=== PATIENT | female | born 1970 | race Caucasian/White ===

== ENCOUNTER 2018-04-04 13:25 | Emergency (ER) | payer SELFPAY ==
[~2018-04-04] VITALS: Ht 134.6 cm; Wt 67.3 kg
[2018-04-04] MEDS ORDERED: PARO20TA24 PO (13:54)
[2018-04-04] MEDS ORDERED: TRAZ-219 PO (13:54)
[2018-04-04] MEDS ORDERED: ALPR-340 PO (13:54)
[2018-04-04] MEDS ORDERED: ALBUTEROL SULFATE 5 MG/ML 20 ML NEB SOLN [BULK] NEB ONE (14:15)
[2018-04-04] MEDS ORDERED: IPRATROPIUM BROMIDE 0.5 MG/2.5 ML NEB SOLUTION NEB ONE (14:15)
[2018-04-04] MEDS ORDERED: 0.9% SODIUM CHLORIDE 5 ML NEB SOLUTION NEB ONE (14:30)
[2018-04-04 14:38] LABS: ABG A-A DIFF O2 419.5 mmHg (10-20.0); ABG BASE EXCESS 5.5 mmol/L (-2.0-3.0); ABG CARBOXYHEMOGLOBIN 0.9 % (0.0-1.5); ABG METHEMOGLOBIN 0.3 % (0.0-1.5); ABG OXYGEN CONTENT 14.3 mL/dL (15.0-23.0); ABG OXYGEN SATURATION 99.1 % (95.0-98.0); ABG OXYHEMOGLOBIN 97.9 % (94.0-100.0); ABG PCO2 44 mmHg (35-45); ABG PH 7.448 (7.35-7.450); ABG TOTAL HEMOGLOBIN 9.9 G/dL (12.0-18.0); PO2, ARTERIAL BG 249.9 mmHg (88.0-96.0); SOURCE, BLOOD GAS ARTERIAL; TEMPERATURE, FAHRENHEIT, BG 98.6 FAHREN (96.0-98.6)
[2018-04-04 14:39] LABS: O2 DEVICE,BLOOD GAS NON REBREATHER (ROOM AIR); SITE, BLOOD GAS LFT RADIAL
[2018-04-04 15:09] LABS: HEMATOCRIT 28.8 % (36-46); HEMOGLOBIN 9.6 g/dL (12.0-16.0); MEAN CORPUSCULAR HEMOGLOBIN 36.8 pg (26.0-34.0); MEAN CORPUSCULAR HGB CONC 33.4 G/dL (31.0-37.0); MEAN CORPUSCULAR VOLUME 110 fL (80-100); PLATELET COUNT (AUTO) 187 K/uL (150-450); RED BLOOD CELL COUNT(AUTO) 2.62 MIL/uL (4.00-5.20); RED CELL DISTRIBUTION WIDTH 14.7 % (11.5-14.5)
[2018-04-04 15:23] LABS: CALCIUM, TOTAL 8.9 mg/dL (8.8-10.5); CREATININE 1.59 mg/dL (0.60-1.30); POTASSIUM 4.1 mmol/L (3.5-5.1)
[2018-04-04] MEDS ORDERED: AZITHROMYCIN 500 MG/NS 250 ML IV ONE (15:30)
[2018-04-04] MEDS ORDERED: CefTRIAXone 1 GM/DEXTROSE 50 ML IV ONE (15:30)
[2018-04-04 15:37] LABS: BAND NEUTROPHILS % (MANUAL) 15 % (0-5); LYMPHOCYTES % (MANUAL) 9 % (22-44); MONOCYTES % (MANUAL) 2 % (2-9); SEGMENTED NEUTROPHILS % 74 % (40-70)
[2018-04-04 15:38] LABS: PLATELET MORPHOLOGY COMMENT GIANT PLTS PRESENT
[2018-04-04] MEDS ORDERED: HEPARIN SODIUM,PORCINE 5,000 UNITS/ML VIAL IVP PRN ×2 (15:45)
[2018-04-04] MEDS ORDERED: HEPARIN SODIUM 25000 UNITS/D5W 250 ML IV PRN (15:45)
[2018-04-04] MEDS ORDERED: ASPIRIN 81 MG CHEWABLE TABLET PO ONE (15:45)
[2018-04-04] MEDS ORDERED: HEPARIN SODIUM,PORCINE 5,000 UNITS/ML VIAL IVP ONE ×4 (15:45→16:30)
[2018-04-04 15:49] LABS: ALBUMIN 2.6 g/dL (3.4-5.0); BILIRUBIN,TOTAL 0.3 mg/dL (0.1-1.0); TOTAL PROTEIN, SERUM 7.5 g/dL (6.4-8.2)
[2018-04-04 16:03] LABS: PROTHROMBIN TIME 10.1 SEC (9.4-11.6)
[2018-04-04] MEDS ORDERED: SODIUM CHLORIDE 0.9% 100 ML ONE (16:10)
[2018-04-04] MEDS ORDERED: IOVERSOL 320 MG/ML 100 ML VIAL ONE (16:10)
[2018-04-04] MEDS ORDERED: FUROSEMIDE 40 MG/4 ML VIAL IVP ONE ×2 (16:15)
[2018-04-04 17:08] LABS: APPEARANCE,URINE CLOUDY (CLEAR); BILIRUBIN,URINE NEGATIVE (NEGATIVE); GLUCOSE, URINE (UA) NEGATIVE (NEGATIVE); KETONES,URINE NEGATIVE (NEGATIVE); LEUKOCYTE ESTERASE ,URINE NEGATIVE (NEGATIVE); NITRATE,URINE NEGATIVE (NEGATIVE); OCCULT BLOOD,URINE SMALL (NEGATIVE); PROTEIN,URINE POS 1+ (NEGATIVE); UROBILINOGEN,URINE 0.2 mg/dL (<=1.0)
[2018-04-04 17:16] LABS: BACTERIA,URINE Rare /HPF (None Seen); SQUAMOUS EPITHELIAL CELL,UR Few /LPF (None Seen); WBC,URINE 0-2 /HPF (0-5)
[2018-04-04 17:17] LABS: AMORPHOUS SEDIMENT,UR Moderate /LPF (None Seen)
[2018-04-04] MEDS ORDERED: 0.9% SODIUM CHLORIDE 10 ML SYRINGE IVP PRN (18:45)
[2018-04-04] MEDS ORDERED: PHENYLEPHRINE 200 MG/D5%-WATER 250 ML IV PRN (18:55)
[2018-04-04 22:20] VITALS: BP 98/48
== END 2018-04-04 22:30 | disposition short-term general hospital (02) ==
LOC: EMS 13:29
DX: I21.4 Non-ST elevation (NSTEMI) myocardial infarction (principal); I50.9 Heart failure, unspecified; Q90.9 Down syndrome, unspecified; J96.90 Respiratory failure, unspecified, unspecified whether with hypoxia or hypercapnia
CPT/HCPCS: 36415; 36600; 71045; 71275; 80053; 81001; 82550; 82805; 83880; 84484; 84702; 85025; 85379; 85610; 85730; 87040; 87205; 93005; 94644; 96365; 96366; 96367; 96368; 96375; 96376; 99291; J0456; J0696; J1644 ×2; J1940; J2370; J7050; Q9967

== ENCOUNTER 2018-04-22 21:47 | Emergency (ER) | payer SELFPAY ==
[~2018-04-22] VITALS: Ht 132.1 cm; Wt 63.4 kg
[~2018-04-22 21:47] MED LIST: ALPR-340 PO; PARO20TA24 PO; TRAZ-219 PO
[2018-04-22] MEDS ORDERED: TRAZ-220 PO (22:12)
[2018-04-22] MEDS ORDERED: ASPI-1182 PO (22:12)
[2018-04-22] MEDS ORDERED: MULT1CAP32 PO (22:12)
[2018-04-22] MEDS ORDERED: VITA-328 PO (22:12)
[2018-04-22] MEDS ORDERED: CHOL50004 PO (22:12)
[2018-04-22] MEDS ORDERED: DIPH50 PO (22:12)
[2018-04-22] MEDS ORDERED: ACET325T47 PO (22:12)
[2018-04-22] MEDS ORDERED: MELA5TAB3 PO (22:12)
[2018-04-22] MEDS ORDERED: LEVO75 PO (22:12)
[2018-04-22 22:52] VITALS: BP 126/70
== END 2018-04-22 22:53 | disposition home or self-care (01) ==
LOC: EMS 21:48
DX: R23.0 Cyanosis (principal); I25.2 Old myocardial infarction; Z79.899 Other long term (current) drug therapy; Z79.82 Long term (current) use of aspirin

== ENCOUNTER 2018-10-14 21:55 | Emergency (ER) | payer MEDICARE ==
[~2018-10-14] VITALS: Ht 134.6 cm; Wt 59.1 kg
[~2018-10-14 21:55] MED LIST changes: +ACET325T47 PO; +ASPI-1182 PO; +CHOL50004 PO; +DIPH50 PO; +LEVO75 PO; +MELA5TAB3 PO; +MULT1CAP32 PO; -TRAZ-219 PO; +TRAZ-220 PO; +VITA-328 PO
[2018-10-14 22:37] LABS: BASOPHILS % (AUTO) 1.2 % (0.0-2.0); HEMATOCRIT 41.4 % (36-46); HEMOGLOBIN 13.9 g/dL (12.0-16.0); LYMPHOCYTES # (AUTO) 1.1 K/uL (1.0-4.8); LYMPHOCYTES % (AUTO) 17.8 % (22.0-44.0); MEAN CORPUSCULAR HEMOGLOBIN 34.9 pg (26.0-34.0); MEAN CORPUSCULAR HGB CONC 33.5 G/dL (31.0-37.0); MEAN CORPUSCULAR VOLUME 104 fL (80-100); MONOCYTES # (AUTO) 0.6 K/uL (0.1-1.0); MONOCYTES % (AUTO) 8.7 % (2.0-9.0); NEUTROPHILS # (AUTO) 4.6 K/uL (1.8-7.7); NEUTROPHILS % (AUTO) 71.3 % (40.0-70.0); PLATELET COUNT (AUTO) 332 K/uL (150-450); RED BLOOD CELL COUNT(AUTO) 3.98 MIL/uL (4.00-5.20); RED CELL DISTRIBUTION WIDTH 12.9 % (11.5-14.5)
[2018-10-14 22:47] LABS: ANION GAP 10 mmol/L (8-16); CARBON DIOXIDE 28 mmol/L (22-29); CHLORIDE 102 mmol/L (98-107); CREATININE 1.16 mg/dL (0.60-1.30); GLOMERULAR FILTR. RATE CALC 50 mL/min (>60); GLUCOSE,RANDOM 138 mg/dL (70-110); SODIUM SERUM 140 mmol/L (136-145); UREA NITROGEN, BLOOD 19 mg/dL (7-18)
[2018-10-14 22:53] LABS: ALANINE AMINOTRANSFERASE 36 U/L (12-78); ALKALINE PHOSPHATASE 97 U/L (46-116); ASPARTATE AMINOTRANSFERASE 49 U/L (15-37); BILIRUBIN,TOTAL 0.4 mg/dL (0.1-1.0); TOTAL PROTEIN, SERUM 8.2 g/dL (6.4-8.2)
[2018-10-15 04:07] VITALS: BP 116/64
== END 2018-10-15 04:49 | disposition home or self-care (01) ==
LOC: EMS 21:57
DX: Q90.9 Down syndrome, unspecified (principal); Z79.899 Other long term (current) drug therapy
CPT/HCPCS: 36415; 80053; 85025; 99285; G0480

== ENCOUNTER 2018-11-04 19:58 | Emergency (ER) | payer MEDICARE | END 2018-11-04 22:30 | disposition home or self-care (01) | LOC: EMS 20:00 | DX: Q90.9 Down syndrome, unspecified (principal); I25.2 Old myocardial infarction; Z79.899 Other long term (current) drug therapy ==